=== PATIENT | male | born 1985 | race Caucasian/White ===

== ENCOUNTER 2021-07-23 05:51 | Day surgery (SDC) | payer OTHER ==
[2021-07-18 11:01] VITALS: BMI 30.4
[2021-07-23] MEDS ORDERED: BUPIVACAINE HCL/EPINEPHRINE/PF 30 ML VIAL IJ ONE (07:18)
[2021-07-23] MEDS ORDERED: MIDAZOLAM HCL 2 MG/2 ML SINGLE DOSE VIAL ONE (07:30)
[2021-07-23] MEDS ORDERED: SUCCINYLCHOLINE CHLORIDE 200 MG/10 ML SYRINGE ONE (07:30)
[2021-07-23] MEDS ORDERED: PROPOFOL 20 ML ONE ×4 (07:30→09:16)
[2021-07-23] MEDS ORDERED: DEXAMETHASONE SOD PHOSPHATE 4 MG/1 ML VIAL ONE (07:46)
[2021-07-23] MEDS ORDERED: ONDANSETRON 4 MG/2 ML VIAL ONE (07:46)
[2021-07-23] MEDS ORDERED: ceFAZolin SODIUM 1 GM VIAL ONE (07:46)
[2021-07-23] MEDS ORDERED: HYDROmorphone HCL/PF 1 MG/ML VIAL ONE ×2 (07:49→08:28)
[2021-07-23] MEDS ORDERED: SEVOFLURANE 250 ML BTL ONE ×3 (09:04→09:08)
[2021-07-23] MEDS ORDERED: oxyCODONE HCL 5 MG TABLET PO PRN (09:59)
[2021-07-23] MEDS ORDERED: ONDANSETRON 4 MG/2 ML VIAL IVPUSH PRN (09:59)
[2021-07-23] MEDS ORDERED: ACETAMINOPHEN 1000 MG/100 ML BAG IVPB ONE (10:00)
[2021-07-23] MEDS ORDERED: LACTATED RINGERS SOLUTION 1,000 ML IV SCH (10:00)
[2021-07-23 11:36] VITALS: PULSE 68
[2021-07-23 11:37] VITALS: TEMP 97.8
[2021-07-23 13:08] VITALS: BP 111/65
== END 2021-07-23 12:25 | disposition home or self-care (01) ==
LOC: FASU 05:51
PROVIDERS: ATTEND Orthopaedic Surgery
PROC: 0LM40ZZ Reattachment of Left Upper Arm Tendon, Open Approach (ICD-10-PCS; principal; 2021-07-23 08:01)
DX: S46.292A Other injury of muscle, fascia and tendon of other parts of biceps, left arm, initial encounter (principal); X58.XXXA Exposure to other specified factors, initial encounter; Y93.9 Activity, unspecified; Y92.9 Unspecified place or not applicable
CPT/HCPCS: 94760